=== PATIENT | female | born 1970 | race Caucasian/White ===

== ENCOUNTER 2016-09-10 20:11 | Emergency (ER) | payer SELFPAY ==
[~2016-09-10] VITALS: Ht 149.9 cm; Wt 51.8 kg
[~2016-09-10 20:11] MED LIST: ALPR.5 PO; HYDR-3516 PO; ZOFR4TAB3 SL
[2016-09-10 20:24] VITALS: BP 119/75; PULSE 84; RESP 16; TEMP 98.4; O2SAT 99
[2016-09-10] MEDS ORDERED: LORA-373 PO (21:08)
[2016-09-10] MEDS ORDERED: PERM5CRE TOPICAL (21:16)
--- NOTE | 2016-09-10 21:18 | PD ---
HPI Chief Complaint: Skin Problem Time Seen by Provider: 21:14 Travel History International Travel<30 days: No Contact w/Intl Traveler<30days: No Traveled to known affect area: No History of Present Illness HPI 45-year-old female presents to the emergency department for evaluation of rash to her abdomen and bilateral upper legs. She states her back Into her house and was found to have feline scabies. She is concerned that she has these bugs. The patient states they're itchy. No fevers or chills. She reports history of anxiety. No other complaints. PFSH Past Medical History Anxiety: Yes Depression: Yes Cerebrovascular Accident: No Diminished Hearing: No Psychiatric: Yes (anxiety panic attacks) Reproductive: No Immunizations Current: No Myocardial Infarction: No Ulcer: Yes Tetanus Vaccination: < 5 Years Influenza Vaccination: No ?: Not Menopausal: Yes : 3 Para: 2 : 1 Tubal Ligation: Yes (1987) Past Surgical History Appendectomy: Yes Other Surgery: Yes (cosmetic) Social History Alcohol Use: No (none recnet) Tobacco Use: Yes (1 PPD X 20 YEARS) Substance Use: No Allergies-Medications (Allergen,Severity, Reaction): Coded Allergies: Sulfa (Verified Allergy, Intermediate, HIVES, 09/10/16) Reported Meds & Prescriptions Reported Meds & Active Scripts Active Reported Lorazepam 0.5 Mg Tab 0.25 Mg PO Q8H PRN Review of Systems Except as stated in HPI: all other systems reviewed are Neg Physical Exam Narrative GENERAL: Well-nourished, well-developed female patient, ambulatory. Afebrile. SKIN: Focused skin assessment warm/dry. Patient has multiple scabs and abdomen and upper legs. No surrounding erythema or evidence of infection. No drainage. HEAD: Normocephalic. Atraumatic. EYES: No scleral icterus. No injection or drainage. NECK: Supple, trachea midline. No JVD or lymphadenopathy. CARDIOVASCULAR: Regular rate and rhythm without murmurs, gallops, or rubs. RESPIRATORY: Breath sounds equal bilaterally. No accessory muscle use. Lungs sounds are clear to auscultation. GASTROINTESTINAL: Abdomen soft, non-tender, nondistended. MUSCULOSKELETAL: No cyanosis, or edema. BACK: Nontender without obvious deformity. No CVA tenderness. Data Data Last Documented VS Vital Signs Date Time Temp Pulse Resp B/P Pulse Ox O2 Delivery O2 Flow Rate FiO2 09/10/16 20:24 98.4 84 16 119/75 99 MDM Medical Decision Making Medical Screen Exam Complete: Yes Emergency Medical Condition: Yes Medical Record Reviewed: Yes Differential Diagnosis Scabies versus contact dermatitis versus insect bites Narrative Course 45-year-old female presents to the emergency department concerned that she got scabies from her cat. Patient has small scabs noted to the abdomen and upper extremities. I will treat her with permethrin cream and instructed to follow- up with a primary care physician or program eligibility specialist. The patient was discharged in stable condition with instructions, including return instructions and follow up instructions. Diagnosis Primary Impression: Skin rash Referrals: Primary Care Physician call for appointment Patient Instructions: Acute Rash (ED), General Instructions, Scabies (ED) Additional Instructions: Use permethrin cream as instructed. Thoroughly massage cream (30 g for average adult) from head to soles of feet; leave on for 8 to 14 hours before removing ( shower or bath). Follow-up with your primary care physician or program eligibility specialist. Wash all clothes and linens in hot water. Return to the emergency department for any acute worsening of symptoms. Med/Other Pt SpecificInfo: Prescription(s) given Scripts Permethrin Topical 5% 5% Cream1 Applic TOPICAL ONCE #1 TUBE Ref 0 Prov:Kalli Ding 09/10/16 Disposition: 01 DISCHARGE HOME Condition: Stable Kalli Ding Sep 10, 2016 21:18
== END 2016-09-10 21:24 | disposition home or self-care (01) ==
LOC: PHED 20:11 → PHEFT 21:24
DX: R21 Rash and other nonspecific skin eruption (principal)
CPT/HCPCS: 99283

== ENCOUNTER 2016-09-13 13:58 | Emergency (ER) | payer SELFPAY ==
[~2016-09-13] VITALS: Ht 152.4 cm; Wt 50.0 kg
[~2016-09-13 13:58] MED LIST changes: -ALPR.5 PO; -HYDR-3516 PO; +LORA-373 PO; +PERM5CRE TOPICAL; -ZOFR4TAB3 SL
[2016-09-13 14:05] VITALS: BP 134/64; PULSE 68; RESP 15; TEMP 98.4; O2SAT 99
--- NOTE | 2016-09-13 14:27 | PD ---
Physical Exam Time Seen by Provider: 14:27 Narrative 45 y/o female here with sore throat, rash, stress. Vital signs reviewed. Seen at triage desk. Awaiting bed placement. Data Data Last Documented VS Vital Signs Date Time Temp Pulse Resp B/P Pulse Ox O2 Delivery O2 Flow Rate FiO2 09/13/16 14:05 98.4 68 15 134/64 99 MDM Medical Record Reviewed: Yes Supervised Visit with YANNA: No Rasheed Bustamante Sep 13, 2016 14:27
--- NOTE | 2016-09-13 15:23 | PD ---
HPI Chief Complaint: Skin Problem Time Seen by Provider: 15:15 Travel History International Travel<30 days: No Contact w/Intl Traveler<30days: No Traveled to known affect area: No History of Present Illness HPI 45-year-old female presents to emergency Department with complaint of a painful , itchy rash to her abdomen, groin area, and thighs that is spreading since Monday. She says she was exposed to a cat with scabies but does not believe that her rash is consistent with scabies because "scabies do not live off of humans and they do not jarod, it's impossible." She is concerned that she is having an allergic reaction. She said her sprayed their house for bugs. She says no one else in the house has a rash. She reports being under a lot of stress and is also concerned that maybe she is having a stress rash. She denies fever, vomiting. She has no other medical complaints. Allergies to sulfa. Symptoms are mild in severity. No other modifying factors or associated signs and symptoms. History Past Medical Histgory Menopausal: Yes Social History Alcohol Use: No (none recnet) Tobacco Use: Yes (1 PPD X 20 YEARS) Allergies-Medications (Allergen,Severity, Reaction): Coded Allergies: Sulfa (Verified Allergy, Intermediate, HIVES, 09/13/16) Reported Meds & Prescriptions Reported Meds & Active Scripts Active Permethrin Topical 5% (Permethrin) 5% Cream 1 Applic TOPICAL ONCE Reported Lorazepam 0.5 Mg Tab 0.25 Mg PO Q8H PRN Review of Systems Except as stated in HPI: all other systems reviewed are Neg Physical Exam Narrative GENERAL: Well-nourished, well-developed female patient, in no acute distress; afebrile, nontoxic-appearing SKIN: Warm and dry. Generalized erythremic pimple-like rash to abdomen, bilateral upper thigh and groin area; some areas appear excoriated. No areas with cellulitic process noted. HEAD: Atraumatic. Normocephalic. EYES: Pupils equal and round. No scleral icterus. No injection or drainage. ENT: Mucosa pink and moist. Airway patent. NECK: Trachea midline. CARDIOVASCULAR: Regular rate. RESPIRATORY: No accessory muscle use. GASTROINTESTINAL: Flat. MUSCULOSKELETAL: No obvious deformities. No clubbing. No cyanosis. No edema. NEUROLOGICAL: Awake and alert. Oriented 3. No obvious cranial nerve deficits. Motor grossly within normal limits. Normal speech. PSYCHIATRIC: Appropriate mood and affect; insight and judgment normal. Data Data Last Documented VS Vital Signs Date Time Temp Pulse Resp B/P Pulse Ox O2 Delivery O2 Flow Rate FiO2 09/13/16 14:05 98.4 68 15 134/64 99 MDM Medical Screen Exam Complete: Yes Emergency Medical Condition: No Differential Diagnosis Scabies rash nonspecific skin rash, nonspecific skin eruption Narrative Course 45-year-old female physical exam consistent with skin rash that is consistent with scabies rash. I reviewed the patient's medical record and saw that she was seen on September 10 and was given a prescription for Elimite cream. Patient states she has the prescription at home. I recommended for the patient to fill the prescription and use medication. If she wanted verification of the rash to follow-up with dermatology. Vital signs are stable and the patient is stable for outpatient follow-up and treatment. The patient has no urgent or emergent medical complaints. There is no emergent or urgent medical need at this time. I instructed the patient to follow up with their primary care provider. A medical screening exam was performed: At the time of evaluation the presenting medical condition was determined not to be of an emergent nature. The patient was given the option of receiving additional care, but declined. Patient was given options for additional community resources from which to obtain care. The Patient Has Been advised to seek medical attention for their presenting complaint. The patient has been advised to return to the ER at any time if an emergent condition develops. Primary Impression: Encounter for medical screening examination Condition: Stable Regla Moon GAME ATTENDANT Sep 13, 2016 15:23
== END 2016-09-13 15:28 | disposition left against medical advice (07) ==
LOC: NEPK 13:58
DX: B86 Scabies (principal); F17.200 Nicotine dependence, unspecified, uncomplicated; Z79.899 Other long term (current) drug therapy
CPT/HCPCS: 99282

== ENCOUNTER 2017-04-22 04:28 | Emergency (ER) | payer SELFPAY ==
[~2017-04-22] VITALS: Ht 152.4 cm; Wt 52.0 kg
[~2017-04-22 04:28] MED LIST changes: -LORA-373 PO; +LORA0.5T PO
[2017-04-22 04:36] VITALS: BP 132/81; PULSE 85; RESP 18; TEMP 97.3; O2SAT 100
[2017-04-22] MEDS ORDERED: ALPR.5 PO (04:45)
[2017-04-22] MEDS ORDERED: PROT40TA PO (04:45)
--- NOTE | 2017-04-22 04:58 | PD ---
HPI Chief Complaint: Cold / Flu Symptoms Time Seen by Provider: 04:53 Travel History International Travel<30 days: No Contact w/Intl Traveler<30days: No Traveled to known affect area: No History of Present Illness HPI 46-year-old female presents for evaluation of sore throat and cough. Symptoms started 1 week ago. The cough is dry. Primary complaint is sore throat which is worse when swallowing. She reports that she was diagnosed with suspected GERD versus peptic ulcer disease recently by her primary care physician and prescribed Protonix approximately 3 weeks ago. She reports that this is in the process of being worked up and she may at some point soon have an endoscopy. She does not know if this is associated with her sore throat and cough. She denies fevers or chills. She has been using [id number] NSAIDs for her pain. She has no other complaints at this time. PFSH Past Medical History Anxiety: Yes Depression: Yes Cerebrovascular Accident: No Diminished Hearing: No GERD: Yes Psychiatric: Yes (anxiety panic attacks) Reproductive: No Immunizations Current: No Myocardial Infarction: No Ulcer: Yes Tetanus Vaccination: < 5 Years Influenza Vaccination: No ?: Not LMP: 04/06/2017 Menopausal: Yes : 3 Para: 2 : 1 Tubal Ligation: Yes (1987) Past Surgical History Appendectomy: Yes Other Surgery: Yes (cosmetic) Social History Alcohol Use: Yes (occasionally) Tobacco Use: Yes (1 PPD X 20 YEARS) Substance Use: No Allergies-Medications (Allergen,Severity, Reaction): Coded Allergies: Sulfa (Sulfonamide Antibiotics) (Unverified Allergy, Intermediate, HIVES, 04/22/17) Reported Meds & Prescriptions Reported Meds & Active Scripts Active Magic Mouthwash Adult Liq (Multi-Ingredient Mouthwash/Gargle) 120 Ml Susp 10 Ml SWISH-SPIT ACHS Each 5mL contains: Nystatin 200,000units, Diphenhydramine 4.25mg, Viscous Lidocaine 10mg, Styles syrup 0.8 mL Reported Protonix (Pantoprazole Sodium) 40 Mg Tab 40 Mg PO DAILY Xanax (Alprazolam) 0.5 Mg Tab 0.5 Mg PO Q12HR PRN Lorazepam 0.5 Mg Tab 0.25 Mg PO Q8H PRN Review of Systems Except as stated in HPI: all other systems reviewed are Neg Physical Exam Narrative GENERAL: Well-developed well-nourished female no acute distress SKIN: Warm and dry. HEAD: Atraumatic. Normocephalic. EYES: Pupils equal and round. No scleral icterus. No injection or drainage. ENT: No nasal bleeding or discharge. Mucous membranes pink and moist. No oral pharyngeal erythema or exudate. NECK: Trachea midline. No JVD. No lymphadenopathy CARDIOVASCULAR: Regular rate and rhythm. No murmur appreciated. RESPIRATORY: No accessory muscle use. Clear to auscultation. Breath sounds equal bilaterally. Data Data Last Documented VS Vital Signs Date Time Temp Pulse Resp B/P (MAP) Pulse Ox O2 Delivery O2 Flow Rate FiO2 04/22/17 04:36 97.3 85 18 132/81 (98) 100 Orders Orders Group A Rapid Strep Screen (04/22/17 04:57) Strep Culture (Group A) (04/22/17 05:06) Ed Discharge Order (04/22/17 05:43) MDM Medical Decision Making Medical Screen Exam Complete: Yes Emergency Medical Condition: Yes Medical Record Reviewed: Yes Differential Diagnosis Pharyngitis, tonsillitis, esophagitis, peritonsillar abscess, bronchitis, GERD Narrative Course Rapid strep screen was performed and is negative. I suspect that the patient has a viral pharyngitis although it could be a symptom of her acid reflux. Recommended that she avoid her [id number] NSAID use and follow-up with her primary care physician as scheduled. She will be discharged with a short course of Magic mouthwash. Diagnosis Primary Impression: Pharyngitis Additional Impression: History of gastroesophageal reflux (GERD) Additional Instructions: Medication as needed. Tylenol for pain. Follow-up with primary care physician. Return for any emergent medical conditions. Med/Other Pt SpecificInfo: Prescription(s) given Scripts Mfwiyimc-Ckbcelktdhgyrmb-Mmbcaltnp Liq (Magic Mouthwash Adult Liq) 120 Ml Susp 10 ML SWISH-SPIT ACHS for Mouth sores, #120 ML 0 Refills Each 5mL contains: Nystatin 200,000units, Diphenhydramine 4.25mg, Viscous Lidocaine 10mg, Styles syrup 0.8 mL Prov: Osiris Rubio MD 04/22/17 Disposition: 01 DISCHARGE HOME Condition: Stable Rasheed Bustamante PA Apr 22, 2017 04:58
[2017-04-22] MEDS ORDERED: MAGICADU2 SWISH-SPIT (05:43)
== END 2017-04-22 05:57 | disposition home or self-care (01) ==
LOC: NEPD 04:28
DX: J02.9 Acute pharyngitis, unspecified (principal); R05 Cough; F41.9 Anxiety disorder, unspecified; F32.9 Major depressive disorder, single episode, unspecified; F41.0 Panic disorder [episodic paroxysmal anxiety]; K21.9 Gastro-esophageal reflux disease without esophagitis; F17.200 Nicotine dependence, unspecified, uncomplicated; Z88.2 Allergy status to sulfonamides; Z79.899 Other long term (current) drug therapy
CPT/HCPCS: 87081; 87880; 99283

== ENCOUNTER 2017-04-24 20:52 | Emergency (ER) | payer SELFPAY ==
[~2017-04-24 20:52] MED LIST changes: +ALPR.5 PO; +MAGICADU2 SWISH-SPIT; -PERM5CRE TOPICAL; +PROT40TA PO
[2017-04-24 21:03] VITALS: BP 132/86; PULSE 97; RESP 16; TEMP 99.2; O2SAT 98
--- NOTE | 2017-04-24 21:46 | RADRPT ---
EXAM DATE/TIME: 04/24/2017 21:18 [facility] COMPARISON: No previous studies available for comparison. INDICATIONS : Hemoptysis. MEDICAL HISTORY : Ulcers. SURGICAL HISTORY : Tubal ligation. ENCOUNTER: Initial ACUITY: 1 day PAIN SCORE: 0/10 LOCATION: Bilateral chest FINDINGS: PA and lateral views of the chest demonstrate the lungs to be symmetrically aerated without evidence of mass, infiltrate or effusion. The cardiomediastinal contours are unremarkable. Osseous structure s are intact. CONCLUSION: No acute disease. Shalom Van MD on April 24, 2017 at 21:43 Board Certified Radiologist. This report was verified electronically.
--- NOTE | 2017-04-25 11:37 | PD ---
HPI Chief Complaint: Cold / Flu Symptoms Time Seen by Provider: 21:03 Travel History International Travel<30 days: No Contact w/Intl Traveler<30days: No Traveled to known affect area: No History of Present Illness HPI Patient was evaluated last week for sore throat. She was told that this was viral. She has had cough and chest congestion worsening over the last 5 days. She states today there is blood in her sputum. Reports chest pain with cough. Does not radiate anywhere. No nausea or vomiting. No episodes of diaphoresis. No other symptoms to report. PFSH Past Medical History Anxiety: Yes Depression: Yes Cerebrovascular Accident: No Diminished Hearing: No GERD: Yes Psychiatric: Yes (anxiety panic attacks) Reproductive: No Immunizations Current: No Myocardial Infarction: No Ulcer: Yes ?: Not Menopausal: Yes : 3 Para: 2 : 1 Tubal Ligation: Yes (1987) Past Surgical History Appendectomy: Yes Other Surgery: Yes (cosmetic) Social History Alcohol Use: Yes (occasionally) Tobacco Use: Yes (1 PPD X 20 YEARS) Substance Use: No Allergies-Medications (Allergen,Severity, Reaction): Coded Allergies: Sulfa (Sulfonamide Antibiotics) (Unverified Allergy, Intermediate, HIVES, 04/22/17) Reported Meds & Prescriptions Reported Meds & Active Scripts Active Magic Mouthwash Adult Liq (Multi-Ingredient Mouthwash/Gargle) 120 Ml Susp 10 Ml SWISH-SPIT ACHS Each 5mL contains: Nystatin 200,000units, Diphenhydramine 4.25mg, Viscous Lidocaine 10mg, Styles syrup 0.8 mL Reported Protonix (Pantoprazole Sodium) 40 Mg Tab 40 Mg PO DAILY Xanax (Alprazolam) 0.5 Mg Tab 0.5 Mg PO Q12HR PRN Lorazepam 0.5 Mg Tab 0.25 Mg PO Q8H PRN Review of Systems Except as stated in HPI: all other systems reviewed are Neg Physical Exam Narrative Well-nourished female patient. She is ambulatory with a non-ataxic gait. She appears without distress. She appears nontoxic. She has even respirations. She has an elevated heart rate. She moves all extremities and speaks clearly. Data Data Last Documented VS Vital Signs Date Time Temp Pulse Resp B/P (MAP) Pulse Ox O2 Delivery O2 Flow Rate FiO2 04/24/17 21:03 99.2 97 16 132/86 (101) 98 Orders Orders Chest, Pa & Lat (04/24/17 ) MDM Medical Decision Making Medical Screen Exam Complete: Yes Emergency Medical Condition: Yes Medical Record Reviewed: Yes Differential Diagnosis Pharyngitis versus influenza versus pneumonia versus bronchitis Narrative Course 46-year-old female presents to emergency department for evaluation. Patient appears nontoxic. Prior to bed placement, patient chooses to leave. AMA: The risks of leaving against medical advice without further evaluation treatment were discussed with the patient. These risks include cardiac dysfunction, cardiac dysrhythmia, possible heart attack, possible stroke or . The patient indicated understanding of these risks and appeared to have the capacity to make this decision. Diagnosis Primary Impression: URI (upper respiratory infection) Patient Instructions: General Instructions Departure Forms: Tests/Procedures Disposition: 07 AGAINST MEDICAL ADVICE Laure Hopkins Apr 25, 2017 11:37
== END 2017-04-24 22:24 | disposition left against medical advice (07) ==
LOC: NED 20:52
DX: J06.9 Acute upper respiratory infection, unspecified (principal); F41.9 Anxiety disorder, unspecified; F32.9 Major depressive disorder, single episode, unspecified; K21.9 Gastro-esophageal reflux disease without esophagitis; F17.200 Nicotine dependence, unspecified, uncomplicated; Z53.20 Procedure and treatment not carried out because of patient's decision for unspecified reasons
CPT/HCPCS: 71046; 99283